=== PATIENT | male | born 1975 | race Caucasian/White ===

== ENCOUNTER → 2017-12-09 | Outpatient (CLI) | payer OTHER | END | disposition home or self-care (01) | LOC: Rad HDHVI 14:11 | PROVIDERS: ATTEND Internal Medicine Cardiovascular Disease | DX: I73.9 Peripheral vascular disease, unspecified (principal); G47.30 Sleep apnea, unspecified | CPT/HCPCS: 93306; 93970 ==

== ENCOUNTER 2022-03-04 09:10 | Inpatient (IN) | payer OTHER ==
[~2022-03-04] VITALS: Ht 175.3 cm; Wt 176.0 kg
[2022-03-04 10:19] LABS: Eosinophils # (auto) 0 10 ^3/uL (0-0.8); Hemoglobin 15.7 g/dL (13.5-17.5); Lymphocytes # (auto) 0.8 10 ^3/uL (0.4-5.4); Monocytes # (auto) 0.9 10 ^3/uL (0-1.3)
[2022-03-04 10:21] LABS: Basophils # (auto) 0 10 ^3/uL (0-0.2); Basophils % (auto) 0.3 % (0.0-2.0); Eosinophils % (auto) 0.1 % (0.0-7.0); Lymphocytes % (auto) 5.1 % (10.0-50.0); Mean Corpuscular Hemoglobin 31.2 pg (28.0-32.0); Mean Corpuscular Hgb Conc. 34.1 g/dL (32.0-36.0); Mean Corpuscular Volume 91.4 fL (80.0-100.0); Monocytes % (auto) 5.8 % (0.0-12.0); Neutrophils # (auto) 13.3 10 ^3/uL (1.6-8.6); Neutrophils % (auto) 88.7 % (37.0-80.0); Nucleated Red Blood Cells % 0.3 %; Red Blood Cells 5.03 10^6/uL (4.5-5.90); Red Cell Distribution Width 16.2 % (11.8-14.3); White Blood Cell 14.9 10^3/uL (4.4-10.8)
[2022-03-04 10:51] LABS: Albumin 3.4 g/dL (3.4-5.0); BUN/Creatinine Ratio 16.9; Calcium 8.9 mg/dL (8.5-10.1); Potassium 4.4 mmol/L (3.5-5.1); Total Protein 7.1 g/dL (6.4-8.2)
[2022-03-04] MEDS ORDERED: ONDANSETRON HCL 4 MG/2 ML VIAL IV ONE (11:45)
[2022-03-04] MEDS ORDERED: METOCLOPRAMIDE HCL 5MG/ml INJ 2ml VIAL IV ONE (11:45)
[2022-03-04] MEDS ORDERED: FAMOTIDINE (10MG/ML) 2ML VL IV ONE (11:45)
[2022-03-04] MEDS ORDERED: LACTATED RINGER'S 1,000 ML IV ONE ×2 (11:45→14:00)
[2022-03-04] MEDS ORDERED: LIDOCAINE VISCOUS 2% 15ML UD PO ONE (11:45)
[2022-03-04] MEDS ORDERED: ALUM & MAG HYDROX-SIMETH LIQ(MAALOX) 30 ML PO ONE (11:45)
[2022-03-04] MEDS ORDERED: MORPHINE SULFATE 4 MG/ML SYR/VIAL IV ONE (15:45)
[2022-03-04] MEDS ORDERED: PANTOPRAZOLE 40 MG/10 ML VIAL INJ IV ONE ×2 (17:45→18:30)
[2022-03-04] MEDS ORDERED: NITROGLYCERIN 0.4 MG SL TAB SL PRN (17:45)
[2022-03-04] MEDS ORDERED: ACETAMINOPHEN 325 MG TAB PO PRN (17:45)
[2022-03-04] MEDS ORDERED: THIAMINE 100mg/ml INJ (200mg/2ml VIAL) IV ONE (17:45)
[2022-03-04] MEDS ORDERED: MORPHINE SULFATE INJ 2 MG/ml SYRG IV PRN (17:45)
[2022-03-04] MEDS ORDERED: cefTRIAXone 1GM/50ML D5W 50 ML IV ONE (17:45)
[2022-03-04] MEDS ORDERED: SODIUM CHLORIDE 0.9% 1,000 ML IV ONE (17:45)
[2022-03-04] MEDS ORDERED: NIFE-3 PO (18:22)
[2022-03-04] MEDS ORDERED: METO-289 PO (18:22)
[2022-03-04] MEDS ORDERED: ENOXAPARIN SOD 40 MG/0.4 ML SYRINGE SC ONE (18:30)
[2022-03-04 18:47] LABS: INR 1.05 (0.9-1.15)
[2022-03-04 19:21] LABS: Blood Alcohol < 3.0 mg/dL (0-5); Cholesterol 85 mg/dL (< 200); HDL Cholesterol 56 mg/dL (40-59); LDL Cholesterol 16 mg/dL (< 100); Triglycerides 263 mg/dL (< 150)
[2022-03-04] MEDS ORDERED: metroNIDAZOLE 500MG/100ML 100 ML IV SCH (22:00)
[2022-03-04] MEDS: MORPHINE SULFATE INJ 2 MG/ml SYRG IV PRN (23:43)
[2022-03-05] MEDS: ONDANSETRON HCL 4 MG/2 ML VIAL IV PRN ×3 (03:20→22:26)
[2022-03-05] MEDS: MORPHINE SULFATE INJ 2 MG/ml SYRG IV PRN ×5 (03:21→22:25)
[2022-03-05 04:29] VITALS: BP 114/67
[2022-03-05] MEDS ORDERED: CLIN150C PO (05:49)
[2022-03-05] MEDS ORDERED: ESOM20CA PO (05:49)
[2022-03-05] MEDS ORDERED: BUSP10TA90 PO (05:49)
[2022-03-05] MEDS ORDERED: LOSA-39 PO (05:49)
[2022-03-05] MEDS ORDERED: AMLO-489 PO (05:49)
[2022-03-05] MEDS ORDERED: RIVA20TA PO (05:49)
[2022-03-05] MEDS ORDERED: LURA40TA PO (05:49)
[2022-03-05 07:42] LABS: Hemoglobin 14.6 g/dL (13.5-17.5); Mean Corpuscular Hemoglobin 31.2 pg (28.0-32.0); Mean Corpuscular Hgb Conc. 33.3 g/dL (32.0-36.0); Mean Corpuscular Volume 93.7 fL (80.0-100.0); Red Blood Cells 4.69 10^6/uL (4.5-5.90); Red Cell Distribution Width 16.5 % (11.8-14.3); White Blood Cell 25.9 10^3/uL (4.4-10.8)
[2022-03-05 07:53] LABS: Basophils % (manual) 0 (0.0-2.0); Blast Cells 0; Eosinophils % (manual) 0 (0-7); Myelocytes % 0; Promyelocytes % 0; Reactive Lymphocytes 0
[2022-03-05] MEDS: THIAMINE 100mg/ml INJ (200mg/2ml VIAL) IV SCH (08:29)
[2022-03-05] MEDS: metroNIDAZOLE 500MG/100ML 100 ML IV SCH ×2 (08:29→17:55)
[2022-03-05] MEDS: PANTOPRAZOLE 40 MG/10 ML VIAL INJ IV SCH (08:29)
[2022-03-05] MEDS: cefTRIAXone 1GM/50ML D5W 50 ML IV SCH (08:29)
[2022-03-05 09:00] VITALS: BP 126/63
[2022-03-05 09:33] LABS: Potassium 5.4 mmol/L (3.5-5.1)
[2022-03-05 09:34] LABS: Albumin 2.2 g/dL (3.4-5.0); BUN/Creatinine Ratio 10.6; Bilirubin, Total 0.8 mg/dL (0.2-1.0); Calcium 7.3 mg/dL (8.5-10.1); Total Protein 5.6 g/dL (6.4-8.2)
[2022-03-05] MEDS ORDERED: ENOXAPARIN SOD 40 MG/0.4 ML SYRINGE SC SCH (10:00)
[2022-03-05] MEDS ORDERED: PANTOPRAZOLE 40 MG/10 ML VIAL INJ IV SCH (10:00)
[2022-03-05] MEDS: SODIUM CHLORIDE 0.9% 1,000 ML IV SCH (10:35)
[2022-03-05] MEDS: HYDROcodone-ACET 5/325MG TAB PO PRN ×2 (10:35→14:24)
[2022-03-05 13:00] VITALS: BP 97/43
[2022-03-05 13:42] LABS: Band Neutrophils % (manual) 11; Lymphocytes % (manual) 13 (10.0-50.0); Metamyelocytes % 3; Monocytes % (manual) 3 (0-12)
[2022-03-05 16:34] VITALS: BP 97/43
[2022-03-05 16:50] VITALS: BP 112/48
[2022-03-05] MEDS: IPRATROPIUM BROM 0.5 MG/2.5ML INH SOL NEB PRN (19:30)
[2022-03-05] MEDS: ALBUTEROL SULF 2.5 MG/0.5ML(0.5%) NEB SOLN NEB PRN (19:30)
[2022-03-05 22:00] VITALS: BP 88/47
[2022-03-05] MEDS: HEPARIN SODIUM (PORCINE) 5000 UNITS/ML 1ML VIAL SC SCH (22:32)
[2022-03-06] MEDS: IPRATROPIUM BROM 0.5 MG/2.5ML INH SOL NEB PRN (00:30)
[2022-03-06] MEDS: ALBUTEROL SULF 2.5 MG/0.5ML(0.5%) NEB SOLN NEB PRN ×2 (00:30→05:52)
[2022-03-06] MEDS: SODIUM CHLORIDE 0.9% 1,000 ML IV SCH ×4 (00:53→18:15)
[2022-03-06] MEDS ORDERED: SODIUM CHLORIDE 0.9% 500 ML IV ONE (02:30)
[2022-03-06] MEDS: metroNIDAZOLE 500MG/100ML 100 ML IV SCH ×3 (03:25→18:30)
[2022-03-06 05:00] VITALS: BP_SYST 168; BP_SYST 85; BP_DIAS 51; BP_DIAS 82
[2022-03-06 07:19] LABS: Calcium 6.7 mg/dL (8.5-10.1); Potassium 5.3 mmol/L (3.5-5.1)
[2022-03-06 07:29] LABS: Basophils # (auto) 0 10 ^3/uL (0-0.2); Basophils % (auto) 0.2 % (0.0-2.0); Eosinophils # (auto) 0.1 10 ^3/uL (0-0.8); Eosinophils % (auto) 0.5 % (0.0-7.0); Hematocrit 37.4 % (41.0-53.0); Hemoglobin 12.3 g/dL (13.5-17.5); Lymphocytes # (auto) 1.4 10 ^3/uL (0.4-5.4); Lymphocytes % (auto) 8.4 % (10.0-50.0); Mean Corpuscular Hemoglobin 31.3 pg (28.0-32.0); Mean Corpuscular Hgb Conc. 32.9 g/dL (32.0-36.0); Mean Corpuscular Volume 95.3 fL (80.0-100.0); Monocytes # (auto) 1.4 10 ^3/uL (0-1.3); Neutrophils # (auto) 14.1 10 ^3/uL (1.6-8.6); Neutrophils % (auto) 82.9 % (37.0-80.0); Nucleated Red Blood Cells % 0.1 %; Red Blood Cells 3.93 10^6/uL (4.5-5.90); Red Cell Distribution Width 16.7 % (11.8-14.3)
[2022-03-06 07:51] LABS: BUN/Creatinine Ratio 10.4
[2022-03-06 09:00] VITALS: BP 168/140
[2022-03-06] MEDS: cefTRIAXone 1GM/50ML D5W 50 ML IV SCH (09:24)
[2022-03-06] MEDS: PANTOPRAZOLE 40 MG/10 ML VIAL INJ IV SCH (09:24)
[2022-03-06] MEDS: THIAMINE 100mg/ml INJ (200mg/2ml VIAL) IV SCH (09:25)
[2022-03-06] MEDS: HEPARIN SODIUM (PORCINE) 5000 UNITS/ML 1ML VIAL SC SCH (09:35)
[2022-03-06] MEDS ORDERED: FUROSEMIDE 100 MG/10ML VIAL IV ONE ×2 (09:45→13:00)
[2022-03-06] MEDS: HYDROcodone-ACET 5/325MG TAB PO PRN ×2 (09:51→14:10)
[2022-03-06] MEDS ORDERED: SODIUM CHLORIDE 0.9 % NEB SOLN 3ML NEB ONE (10:10)
[2022-03-06] MEDS: ALBUMIN 25% 50 ML IV SCH ×2 (11:15→16:25)
[2022-03-06 13:00] VITALS: BP 121/38
[2022-03-06] MEDS: ALBUTEROL SULF 2.5 MG/0.5ML(0.5%) NEB SOLN HHN SCH ×2 (16:08→18:22)
[2022-03-06] MEDS: IPRATROPIUM BROM 0.5 MG/2.5ML INH SOL NEB SCH ×2 (16:08→18:22)
[2022-03-06 16:49] VITALS: BP 85/49
[2022-03-06] MEDS: MIDODRINE HCL 10 MG TAB PO SCH (18:30)
[2022-03-06 23:03] VITALS: BP 109/31
[2022-03-07] MEDS: ALBUMIN 25% 50 ML IV SCH (00:09)
[2022-03-07] MEDS: HEPARIN SODIUM (PORCINE) 5000 UNITS/ML 1ML VIAL SC SCH ×3 (00:10→21:58)
[2022-03-07] MEDS: ALBUTEROL SULF 2.5 MG/0.5ML(0.5%) NEB SOLN HHN SCH ×3 (00:29→12:09)
[2022-03-07] MEDS: IPRATROPIUM BROM 0.5 MG/2.5ML INH SOL NEB SCH ×6 (00:29→22:24)
[2022-03-07] MEDS: metroNIDAZOLE 500MG/100ML 100 ML IV SCH ×3 (03:19→18:31)
[2022-03-07] MEDS: SODIUM CHLORIDE 0.9% 1,000 ML IV SCH ×3 (03:19→18:31)
[2022-03-07] MEDS: HYDROcodone-ACET 5/325MG TAB PO PRN ×3 (03:57→20:06)
[2022-03-07] MEDS: MIDODRINE HCL 10 MG TAB PO SCH ×3 (05:55→18:31)
[2022-03-07 06:20] VITALS: BP 119/48
[2022-03-07 09:00] VITALS: BP 132/50
[2022-03-07] MEDS: PANTOPRAZOLE 40 MG/10 ML VIAL INJ IV SCH (09:25)
[2022-03-07] MEDS: cefTRIAXone 1GM/50ML D5W 50 ML IV SCH (09:25)
[2022-03-07] MEDS: THIAMINE 100mg/ml INJ (200mg/2ml VIAL) IV SCH (09:25)
[2022-03-07 10:24] LABS: Hematocrit 32.2 % (41.0-53.0); Hemoglobin 10.5 g/dL (13.5-17.5); Mean Corpuscular Hemoglobin 31.5 pg (28.0-32.0); Mean Corpuscular Hgb Conc. 32.7 g/dL (32.0-36.0); Mean Corpuscular Volume 96.1 fL (80.0-100.0); Red Blood Cells 3.35 10^6/uL (4.5-5.90); Red Cell Distribution Width 17.5 % (11.8-14.3); White Blood Cell 8.8 10^3/uL (4.4-10.8)
[2022-03-07 10:43] LABS: BUN/Creatinine Ratio 9.2; Calcium 7.2 mg/dL (8.5-10.1); Potassium 5.4 mmol/L (3.5-5.1)
[2022-03-07 10:57] LABS: Basophils % (manual) 0 (0.0-2.0); Blast Cells 0; Myelocytes % 0; Promyelocytes % 0; Reactive Lymphocytes 0
[2022-03-07 13:00] VITALS: BP 107/52
[2022-03-07 14:24] LABS: Band Neutrophils % (manual) 21; Eosinophils % (manual) 1 (0-7); Lymphocytes % (manual) 11 (10.0-50.0); Metamyelocytes % 1; Monocytes % (manual) 9 (0-12)
[2022-03-07] MEDS: ALBUTEROL SULF 2.5 MG/0.5ML(0.5%) NEB SOLN NEB SCH ×3 (14:25→22:24)
[2022-03-07 17:00] VITALS: BP 105/54
[2022-03-07 22:24] VITALS: BP 108/60
[2022-03-08] VITALS (10 sets, daily range): BP systolic 120–162; BP diastolic 38–74
[2022-03-08] MEDS: metroNIDAZOLE 500MG/100ML 100 ML IV SCH ×3 (01:50→19:00)
[2022-03-08] MEDS: IPRATROPIUM BROM 0.5 MG/2.5ML INH SOL NEB SCH ×6 (02:31→21:47)
[2022-03-08] MEDS: ALBUTEROL SULF 2.5 MG/0.5ML(0.5%) NEB SOLN NEB SCH ×6 (02:31→21:47)
[2022-03-08] MEDS: SODIUM CHLORIDE 0.9% 1,000 ML IV SCH ×2 (03:15→10:15)
[2022-03-08] MEDS: MIDODRINE HCL 10 MG TAB PO SCH ×3 (06:00→18:00)
[2022-03-08 06:22] LABS: Hematocrit 31.1 % (41.0-53.0); Hemoglobin 10.2 g/dL (13.5-17.5); Mean Corpuscular Hemoglobin 32.2 pg (28.0-32.0); Mean Corpuscular Hgb Conc. 32.9 g/dL (32.0-36.0); Mean Corpuscular Volume 97.7 fL (80.0-100.0); Red Blood Cells 3.18 10^6/uL (4.5-5.90); Red Cell Distribution Width 17.7 % (11.8-14.3); White Blood Cell 7.8 10^3/uL (4.4-10.8)
[2022-03-08 06:40] LABS: Basophils % (manual) 0 (0.0-2.0); Blast Cells 0; Metamyelocytes % 0; Myelocytes % 0; Promyelocytes % 0; Reactive Lymphocytes 0
[2022-03-08 06:45] LABS: BUN/Creatinine Ratio 9.1; Calcium 6.7 mg/dL (8.5-10.1); Potassium 5.5 mmol/L (3.5-5.1)
[2022-03-08 08:41] LABS: Band Neutrophils % (manual) 10; Eosinophils % (manual) 5 (0-7); Lymphocytes % (manual) 12 (10.0-50.0); Monocytes % (manual) 5 (0-12)
[2022-03-08] MEDS: cefTRIAXone 1GM/50ML D5W 50 ML IV SCH (08:52)
[2022-03-08] MEDS: MORPHINE SULFATE INJ 2 MG/ml SYRG IV PRN ×3 (08:53→21:00)
[2022-03-08] MEDS: PANTOPRAZOLE 40 MG/10 ML VIAL INJ IV SCH (09:46)
[2022-03-08] MEDS: THIAMINE 100mg/ml INJ (200mg/2ml VIAL) IV SCH (09:46)
[2022-03-08] MEDS: HEPARIN SODIUM (PORCINE) 5000 UNITS/ML 1ML VIAL SC SCH ×2 (13:11→22:24)
[2022-03-08] MEDS ORDERED: SODIUM CHL 0.9% 1000 ML BAG XX ONE (16:30)
[2022-03-08] MEDS: LORazepam 2MG/ML-1ML VIAL IV PRN (18:53)
[2022-03-08] MEDS: ACETAMINOPHEN 325 MG TAB PO PRN (20:34)
[2022-03-09] VITALS (26 sets, daily range): BP systolic 98–160; BP diastolic 41–111
[2022-03-09] MEDS ORDERED: SODIUM BICARBONATE 8.4% INJ 50ML SYRINGE ONE (01:11)
[2022-03-09] MEDS ORDERED: SODIUM BICARBONATE 8.4 % INJ 50ML VIAL IV ONE (01:15)
[2022-03-09] MEDS: MORPHINE SULFATE INJ 2 MG/ml SYRG IV PRN ×4 (01:16→22:57)
[2022-03-09] MEDS: LORazepam 2MG/ML-1ML VIAL IV PRN ×8 (02:28→23:56)
[2022-03-09] MEDS: metroNIDAZOLE 500MG/100ML 100 ML IV SCH ×3 (02:40→18:00)
[2022-03-09] MEDS: MIDODRINE HCL 10 MG TAB PO SCH ×3 (05:21→18:00)
[2022-03-09] MEDS: ALBUTEROL SULF 2.5 MG/0.5ML(0.5%) NEB SOLN NEB SCH ×5 (06:29→21:33)
[2022-03-09] MEDS: IPRATROPIUM BROM 0.5 MG/2.5ML INH SOL NEB SCH ×5 (06:29→21:33)
[2022-03-09 07:07] LABS: Hematocrit 35.7 % (41.0-53.0); Hemoglobin 11.2 g/dL (13.5-17.5); Mean Corpuscular Hemoglobin 31.8 pg (28.0-32.0); Mean Corpuscular Hgb Conc. 31.4 g/dL (32.0-36.0); Mean Corpuscular Volume 101.3 fL (80.0-100.0); Red Blood Cells 3.53 10^6/uL (4.5-5.90); Red Cell Distribution Width 18.3 % (11.8-14.3); White Blood Cell 9.7 10^3/uL (4.4-10.8)
[2022-03-09 07:09] LABS: Basophils % (manual) 0 (0.0-2.0); Blast Cells 0; Eosinophils % (manual) 0 (0-7); Promyelocytes % 0; Reactive Lymphocytes 0
[2022-03-09 07:23] LABS: BUN/Creatinine Ratio 8.1; Calcium 7.2 mg/dL (8.5-10.1)
[2022-03-09 07:35] LABS: Potassium 5.7 mmol/L (3.5-5.1)
[2022-03-09 08:18] LABS: Band Neutrophils % (manual) 30; Lymphocytes % (manual) 21 (10.0-50.0); Metamyelocytes % 3; Monocytes % (manual) 4 (0-12); Myelocytes % 1
[2022-03-09] MEDS: cefTRIAXone 1GM/50ML D5W 50 ML IV SCH (08:23)
[2022-03-09] MEDS ORDERED: SODIUM CHL 0.9% 1000 ML BAG XX ONE (09:45)
[2022-03-09] MEDS: PANTOPRAZOLE 40 MG/10 ML VIAL INJ IV SCH (13:44)
[2022-03-09] MEDS: THIAMINE 100mg/ml INJ (200mg/2ml VIAL) IV SCH (13:45)
[2022-03-09] MEDS: HEPARIN SODIUM (PORCINE) 5000 UNITS/ML 1ML VIAL SC SCH ×2 (13:58→22:00)
[2022-03-09] MEDS ORDERED: MELATONIN 5 MG TAB ONE (22:43)
[2022-03-10] VITALS (21 sets, daily range): BP systolic 104–155; BP diastolic 45–89
[2022-03-10] MEDS: metroNIDAZOLE 500MG/100ML 100 ML IV SCH ×3 (02:00→20:00)
[2022-03-10] MEDS: LORazepam 2MG/ML-1ML VIAL IV PRN ×6 (02:22→23:27)
[2022-03-10] MEDS: IPRATROPIUM BROM 0.5 MG/2.5ML INH SOL NEB SCH ×6 (05:06→22:42)
[2022-03-10] MEDS: ALBUTEROL SULF 2.5 MG/0.5ML(0.5%) NEB SOLN NEB SCH ×6 (05:06→22:42)
[2022-03-10] MEDS: MIDODRINE HCL 10 MG TAB PO SCH ×3 (06:00→18:00)
[2022-03-10 06:46] LABS: INR 1.07 (0.9-1.15)
[2022-03-10 07:02] LABS: Albumin 2.2 g/dL (3.4-5.0); Calcium 7.8 mg/dL (8.5-10.1)
[2022-03-10 07:07] LABS: BUN/Creatinine Ratio 7.4; Bilirubin, Total 0.8 mg/dL (0.2-1.0); Total Protein 5.7 g/dL (6.4-8.2)
[2022-03-10 07:11] LABS: Basophils # (auto) 0 10 ^3/uL (0-0.2); Basophils % (auto) 0.3 % (0.0-2.0); Eosinophils # (auto) 0.1 10 ^3/uL (0-0.8); Eosinophils % (auto) 0.8 % (0.0-7.0); Hematocrit 32.4 % (41.0-53.0); Hemoglobin 10.3 g/dL (13.5-17.5); Lymphocytes # (auto) 0.8 10 ^3/uL (0.4-5.4); Lymphocytes % (auto) 6.5 % (10.0-50.0); Mean Corpuscular Hemoglobin 31.2 pg (28.0-32.0); Mean Corpuscular Hgb Conc. 31.9 g/dL (32.0-36.0); Mean Corpuscular Volume 97.8 fL (80.0-100.0); Monocytes # (auto) 1.1 10 ^3/uL (0-1.3); Monocytes % (auto) 9.1 % (0.0-12.0); Neutrophils # (auto) 10.3 10 ^3/uL (1.6-8.6); Neutrophils % (auto) 83.3 % (37.0-80.0); Nucleated Red Blood Cells % 0.3 %; Red Blood Cells 3.31 10^6/uL (4.5-5.90); White Blood Cell 12.3 10^3/uL (4.4-10.8)
[2022-03-10] MEDS: THIAMINE 100mg/ml INJ (200mg/2ml VIAL) IV SCH (11:06)
[2022-03-10] MEDS: HEPARIN SODIUM (PORCINE) 5000 UNITS/ML 1ML VIAL SC SCH ×2 (11:06→22:00)
[2022-03-10] MEDS: PANTOPRAZOLE 40 MG/10 ML VIAL INJ IV SCH (11:07)
[2022-03-10] MEDS: cefTRIAXone 1GM/50ML D5W 50 ML IV SCH (11:07)
[2022-03-10 11:31] LABS: Hepatitis C Antibody Negative (Negative)
[2022-03-10 12:42] LABS: Urine Bacteria NONE SEEN /hpf (None Seen); Urine Blood 3+ /uL (Negative); Urine Budding Yeast MODERATE /hpf (None Seen); Urine Mucus FEW (None Seen); Urine Specific Gravity 1.019 (1.001-1.035); Urine WBC 14 /hpf (0 - 3)
[2022-03-10 12:52] LABS: Sodium Urine 27 mmol/L (40-220)
[2022-03-10 12:54] LABS: Creatinine, Urine 177 mg/dL (30.0-125.0)
[2022-03-10 12:57] LABS: Protein, Urine 534.9 mg/dL (0.0-11.9)
[2022-03-10] MEDS: MORPHINE SULFATE INJ 2 MG/ml SYRG IV PRN (22:59)
[2022-03-10] MEDS: ACETAMINOPHEN 325 MG TAB PO PRN (23:07)
[2022-03-11] VITALS (30 sets, daily range): BP systolic 14–135; BP diastolic 36–84
[2022-03-11] MEDS: ONDANSETRON HCL 4 MG/2 ML VIAL IV PRN ×2 (00:23→11:36)
[2022-03-11] MEDS: metroNIDAZOLE 500MG/100ML 100 ML IV SCH ×2 (02:00→13:54)
[2022-03-11 04:25] LABS: Basophils # (auto) 0.1 10 ^3/uL (0-0.2); Basophils % (auto) 0.5 % (0.0-2.0); Eosinophils # (auto) 0.2 10 ^3/uL (0-0.8); Eosinophils % (auto) 1.1 % (0.0-7.0); Hematocrit 29.8 % (41.0-53.0); Hemoglobin 9.8 g/dL (13.5-17.5); Lymphocytes # (auto) 0.7 10 ^3/uL (0.4-5.4); Lymphocytes % (auto) 3.7 % (10.0-50.0); Mean Corpuscular Hemoglobin 31.6 pg (28.0-32.0); Mean Corpuscular Hgb Conc. 32.9 g/dL (32.0-36.0); Mean Corpuscular Volume 95.9 fL (80.0-100.0); Monocytes # (auto) 0.9 10 ^3/uL (0-1.3); Monocytes % (auto) 4.8 % (0.0-12.0); Neutrophils # (auto) 17.1 10 ^3/uL (1.6-8.6); Neutrophils % (auto) 89.9 % (37.0-80.0); Nucleated Red Blood Cells % 0.1 %; Red Cell Distribution Width 17.9 % (11.8-14.3)
[2022-03-11] MEDS: MIDODRINE HCL 10 MG TAB PO SCH ×3 (06:00→18:00)
[2022-03-11] MEDS: ALBUTEROL SULF 2.5 MG/0.5ML(0.5%) NEB SOLN NEB SCH ×5 (06:12→22:13)
[2022-03-11] MEDS: IPRATROPIUM BROM 0.5 MG/2.5ML INH SOL NEB SCH ×5 (06:12→22:13)
[2022-03-11] MEDS ORDERED: SODIUM CHL 0.9% 1000 ML BAG XX ONE (07:00)
[2022-03-11 08:34] LABS: BUN/Creatinine Ratio 7.9; Calcium 7.3 mg/dL (8.5-10.1); Potassium 5.3 mmol/L (3.5-5.1)
[2022-03-11] MEDS ORDERED: methylPREDNISolone SOD SUCC 40 MG/ML VL IV ONE (09:45)
[2022-03-11] MEDS: THIAMINE 100mg/ml INJ (200mg/2ml VIAL) IV SCH (10:00)
[2022-03-11] MEDS: HEPARIN SODIUM (PORCINE) 5000 UNITS/ML 1ML VIAL SC SCH ×2 (10:00→23:30)
[2022-03-11] MEDS: PANTOPRAZOLE 40 MG/10 ML VIAL INJ IV SCH (10:00)
[2022-03-11] MEDS: NOREPINEPHRINE 8 MG/250ML KIT 250 ML IV SCH (10:15)
[2022-03-11] MEDS: ALBUMIN 25% 100 ML IV PRN ×2 (10:50→12:14)
[2022-03-11] MEDS: cefTRIAXone 1GM/50ML D5W 50 ML IV SCH (13:54)
[2022-03-11] MEDS: MORPHINE SULFATE INJ 2 MG/ml SYRG IV PRN (14:05)
[2022-03-11] MEDS ORDERED: ETOMIDATE (2MG/ML) 20ML VIAL IV ONE (15:00)
[2022-03-11] MEDS: MIDAZOLAM DRIP 50 mg/50mL 50 ML IV SCH (15:00)
[2022-03-11] MEDS ORDERED: ROCURONIUM 10MG/ML 10ML VIAL IV ONE (15:00)
[2022-03-11] MEDS: fentaNYL Drip 2500mCg/250mlNS 250 ML IV SCH (15:00)
[2022-03-11] MEDS ORDERED: MIDAZOLAM DRIP 50 mg/50mL 50 ML IV ONE (15:10)
[2022-03-11] MEDS ORDERED: fentaNYL Drip 2500mCg/250mlNS 250 ML IV ONE (15:10)
[2022-03-11] MEDS: PROPOFOL 100 ML IV SCH (18:07)
[2022-03-11] MEDS ORDERED: EPOETIN ALFA-EPBX 10,000 UNIT/1ML VIAL SC ONE (21:00)
[2022-03-11] MEDS: LACTULOSE 20Gm/30ML SOLN PO SCH (22:00)
[2022-03-11] MEDS: methylPREDNISolone SOD SUCC 40 MG/ML VL IV SCH (23:30)
[2022-03-12] VITALS (77 sets, daily range): BP systolic 83–117; BP diastolic 36–80
[2022-03-12] MEDS: metroNIDAZOLE 500MG/100ML 100 ML IV SCH ×3 (02:00→18:03)
[2022-03-12 04:02] LABS: Hematocrit 29.3 % (41.0-53.0); Hemoglobin 9.3 g/dL (13.5-17.5); Mean Corpuscular Hemoglobin 30.8 pg (28.0-32.0); Mean Corpuscular Hgb Conc. 31.6 g/dL (32.0-36.0); Mean Corpuscular Volume 97.3 fL (80.0-100.0); Red Blood Cells 3.01 10^6/uL (4.5-5.90); White Blood Cell 27.1 10^3/uL (4.4-10.8)
[2022-03-12 04:22] LABS: Calcium 7.4 mg/dL (8.5-10.1)
[2022-03-12 04:26] LABS: BUN/Creatinine Ratio 7.5
[2022-03-12 04:29] LABS: Basophils % (manual) 0 (0.0-2.0); Blast Cells 0; Eosinophils % (manual) 0 (0-7); Metamyelocytes % 0; Myelocytes % 0; Promyelocytes % 0; Reactive Lymphocytes 0
[2022-03-12 05:07] LABS: Potassium 6.1 mmol/L (3.5-5.1)
[2022-03-12] MEDS: MIDODRINE HCL 10 MG TAB PO SCH ×3 (05:36→18:00)
[2022-03-12] MEDS: IPRATROPIUM BROM 0.5 MG/2.5ML INH SOL NEB SCH ×5 (06:41→22:11)
[2022-03-12] MEDS: ALBUTEROL SULF 2.5 MG/0.5ML(0.5%) NEB SOLN NEB SCH ×5 (06:41→22:11)
[2022-03-12] MEDS ORDERED: SODIUM CHL 0.9% 1000 ML BAG XX ONE (07:00)
[2022-03-12 07:04] LABS: Band Neutrophils % (manual) 27; Lymphocytes % (manual) 1 (10.0-50.0); Monocytes % (manual) 1 (0-12)
[2022-03-12] MEDS: PROPOFOL 100 ML IV SCH ×3 (08:26→20:39)
[2022-03-12] MEDS: MIDAZOLAM DRIP 50 mg/50mL 50 ML IV SCH ×3 (08:26→20:40)
[2022-03-12] MEDS: fentaNYL Drip 2500mCg/250mlNS 250 ML IV SCH ×2 (08:27→20:41)
[2022-03-12] MEDS: methylPREDNISolone SOD SUCC 40 MG/ML VL IV SCH ×2 (09:33→21:49)
[2022-03-12] MEDS: PANTOPRAZOLE 40 MG/10 ML VIAL INJ IV SCH (09:33)
[2022-03-12] MEDS: cefTRIAXone 1GM/50ML D5W 50 ML IV SCH (09:33)
[2022-03-12] MEDS: THIAMINE 100mg/ml INJ (200mg/2ml VIAL) IV SCH (09:33)
[2022-03-12] MEDS: LACTULOSE 20Gm/30ML SOLN PO SCH (09:34)
[2022-03-12] MEDS: HEPARIN SODIUM (PORCINE) 5000 UNITS/ML 1ML VIAL SC SCH ×2 (09:48→21:48)
[2022-03-12] MEDS: NOREPINEPHRINE 8 MG/250ML KIT 250 ML IV SCH ×2 (10:15→17:59)
[2022-03-12] MEDS ORDERED: EPOETIN ALFA-EPBX 10,000 UNIT/1ML VIAL SC ONE (21:00)
[2022-03-13] VITALS (98 sets, daily range): BP systolic 77–139; BP diastolic 26–78
[2022-03-13] MEDS: MIDAZOLAM DRIP 50 mg/50mL 50 ML IV SCH ×3 (00:01→21:07)
[2022-03-13] MEDS: metroNIDAZOLE 500MG/100ML 100 ML IV SCH ×2 (02:01→10:42)
[2022-03-13 04:22] LABS: Hemoglobin 8.4 g/dL (13.5-17.5); White Blood Cell 18.7 10^3/uL (4.4-10.8)
[2022-03-13 04:25] LABS: Hematocrit 26.1 % (41.0-53.0); Mean Corpuscular Hemoglobin 31.3 pg (28.0-32.0); Mean Corpuscular Hgb Conc. 32.3 g/dL (32.0-36.0); Mean Corpuscular Volume 96.9 fL (80.0-100.0); Red Blood Cells 2.69 10^6/uL (4.5-5.90); Red Cell Distribution Width 17.7 % (11.8-14.3)
[2022-03-13 04:30] LABS: Basophils % (manual) 0 (0.0-2.0); Blast Cells 0; Eosinophils % (manual) 0 (0-7); Lymphocytes % (manual) 0 (10.0-50.0); Metamyelocytes % 0; Myelocytes % 0; Promyelocytes % 0; Reactive Lymphocytes 0
[2022-03-13 04:32] LABS: Potassium 4.9 mmol/L (3.5-5.1)
[2022-03-13 04:37] LABS: BUN/Creatinine Ratio 8.3; Calcium 7.3 mg/dL (8.5-10.1)
[2022-03-13] MEDS: MIDODRINE HCL 10 MG TAB PO SCH ×3 (04:45→17:26)
[2022-03-13] MEDS: PROPOFOL 100 ML IV SCH ×3 (05:14→19:56)
[2022-03-13] MEDS: IPRATROPIUM BROM 0.5 MG/2.5ML INH SOL NEB SCH ×5 (06:26→22:00)
[2022-03-13] MEDS: ALBUTEROL SULF 2.5 MG/0.5ML(0.5%) NEB SOLN NEB SCH ×5 (06:26→22:00)
[2022-03-13 08:10] LABS: Band Neutrophils % (manual) 11
[2022-03-13 08:13] LABS: Monocytes % (manual) 1 (0-12)
[2022-03-13] MEDS: cefTRIAXone 1GM/50ML D5W 50 ML IV SCH (08:40)
[2022-03-13] MEDS: fentaNYL Drip 2500mCg/250mlNS 250 ML IV SCH ×2 (08:41→21:10)
[2022-03-13] MEDS: HEPARIN SODIUM (PORCINE) 5000 UNITS/ML 1ML VIAL SC SCH ×2 (10:00→21:10)
[2022-03-13] MEDS: LACTULOSE 20Gm/30ML SOLN PO SCH (10:00)
[2022-03-13] MEDS: THIAMINE 100mg/ml INJ (200mg/2ml VIAL) IV SCH (10:41)
[2022-03-13] MEDS: methylPREDNISolone SOD SUCC 40 MG/ML VL IV SCH ×2 (10:42→21:07)
[2022-03-13] MEDS: PANTOPRAZOLE 40 MG/10 ML VIAL INJ IV SCH (10:42)
[2022-03-13] MEDS ORDERED: MEROPENEM 1GM IVPB 100 ML IV SCH (14:00)
[2022-03-13] MEDS: MEROPENEM 500MG IVPB 50 ML IV SCH ×2 (15:00→23:58)
[2022-03-14] VITALS (104 sets, daily range): BP systolic 93–126; BP diastolic 42–68
[2022-03-14] MEDS: PROPOFOL 100 ML IV SCH ×4 (00:39→21:11)
[2022-03-14] MEDS: MIDAZOLAM DRIP 50 mg/50mL 50 ML IV SCH ×2 (02:51→21:10)
[2022-03-14 04:00] LABS: Basophils # (auto) 0 10 ^3/uL (0-0.2); Eosinophils # (auto) 0 10 ^3/uL (0-0.8); Hemoglobin 8.8 g/dL (13.5-17.5); Lymphocytes # (auto) 0.3 10 ^3/uL (0.4-5.4); Lymphocytes % (auto) 1.8 % (10.0-50.0); Mean Corpuscular Hemoglobin 31.2 pg (28.0-32.0); Mean Corpuscular Hgb Conc. 31.6 g/dL (32.0-36.0); Mean Corpuscular Volume 98.5 fL (80.0-100.0); Monocytes # (auto) 0.6 10 ^3/uL (0-1.3); Monocytes % (auto) 3.7 % (0.0-12.0); Neutrophils # (auto) 15.8 10 ^3/uL (1.6-8.6); Neutrophils % (auto) 94.5 % (37.0-80.0); Nucleated Red Blood Cells % 0.1 %; Red Blood Cells 2.84 10^6/uL (4.5-5.90); Red Cell Distribution Width 18.3 % (11.8-14.3); White Blood Cell 16.8 10^3/uL (4.4-10.8)
[2022-03-14 04:20] LABS: BUN/Creatinine Ratio 9.7; Calcium 7.2 mg/dL (8.5-10.1); Potassium 5.1 mmol/L (3.5-5.1)
[2022-03-14] MEDS: MIDODRINE HCL 10 MG TAB PO SCH ×4 (05:30→17:36)
[2022-03-14] MEDS: IPRATROPIUM BROM 0.5 MG/2.5ML INH SOL NEB SCH ×5 (06:00→22:15)
[2022-03-14] MEDS: ALBUTEROL SULF 2.5 MG/0.5ML(0.5%) NEB SOLN NEB SCH ×5 (06:00→22:15)
[2022-03-14] MEDS: HEPARIN SODIUM (PORCINE) 5000 UNITS/ML 1ML VIAL SC SCH ×2 (10:12→21:15)
[2022-03-14] MEDS: methylPREDNISolone SOD SUCC 40 MG/ML VL IV SCH ×2 (10:13→21:14)
[2022-03-14] MEDS: NOREPINEPHRINE 8 MG/250ML KIT 250 ML IV SCH (10:15)
[2022-03-14] MEDS: fentaNYL Drip 2500mCg/250mlNS 250 ML IV SCH ×2 (10:16→21:13)
[2022-03-14] MEDS: THIAMINE 100mg/ml INJ (200mg/2ml VIAL) IV SCH (10:16)
[2022-03-14] MEDS: PANTOPRAZOLE 40 MG/10 ML VIAL INJ IV SCH (10:16)
[2022-03-14] MEDS: LACTULOSE 20Gm/30ML SOLN PO SCH (10:17)
[2022-03-14] MEDS: MEROPENEM 500MG IVPB 50 ML IV SCH (12:39)
[2022-03-15] VITALS (103 sets, daily range): BP systolic 82–120; BP diastolic 32–74
[2022-03-15] MEDS: MEROPENEM 500MG IVPB 50 ML IV SCH ×2 (00:15→13:05)
[2022-03-15] MEDS: PROPOFOL 100 ML IV SCH ×4 (01:18→21:22)
[2022-03-15] MEDS: MIDAZOLAM DRIP 50 mg/50mL 50 ML IV SCH ×5 (02:47→21:23)
[2022-03-15 04:21] LABS: Hematocrit 30.8 % (41.0-53.0); Hemoglobin 9.6 g/dL (13.5-17.5); Mean Corpuscular Hemoglobin 31.4 pg (28.0-32.0); Mean Corpuscular Hgb Conc. 31.2 g/dL (32.0-36.0); Mean Corpuscular Volume 100.8 fL (80.0-100.0); Red Blood Cells 3.05 10^6/uL (4.5-5.90); Red Cell Distribution Width 17.7 % (11.8-14.3); White Blood Cell 22.4 10^3/uL (4.4-10.8)
[2022-03-15 04:32] LABS: BUN/Creatinine Ratio 11.8
[2022-03-15 04:36] LABS: Potassium 6.9 mmol/L (3.5-5.1)
[2022-03-15 04:38] LABS: Basophils % (manual) 0 (0.0-2.0); Blast Cells 0; Eosinophils % (manual) 0 (0-7); Metamyelocytes % 0; Myelocytes % 0; Promyelocytes % 0; Reactive Lymphocytes 0
[2022-03-15 05:40] LABS: Band Neutrophils % (manual) 5; Lymphocytes % (manual) 2 (10.0-50.0); Monocytes % (manual) 2 (0-12)
[2022-03-15] MEDS: MIDODRINE HCL 10 MG TAB PO SCH ×3 (06:02→18:00)
[2022-03-15] MEDS: IPRATROPIUM BROM 0.5 MG/2.5ML INH SOL NEB SCH ×5 (06:08→22:28)
[2022-03-15] MEDS: ALBUTEROL SULF 2.5 MG/0.5ML(0.5%) NEB SOLN NEB SCH ×5 (06:08→22:28)
[2022-03-15] MEDS ORDERED: CALCIUM GLUC 1,000mg/50ml-NS 50 ML IV ONE (06:30)
[2022-03-15] MEDS ORDERED: InsuLIN REG 1unit/0.01ml Soln (100units/ml) IV ONE (06:30)
[2022-03-15] MEDS ORDERED: ALBUTEROL SULF 2.5 MG/0.5ML(0.5%) NEB SOLN NEB ONE (06:30)
[2022-03-15] MEDS ORDERED: SODIUM BICARBONATE 8.4% INJ 50ML SYRINGE IV ONE (06:30)
[2022-03-15] MEDS ORDERED: DEXTROSE (50%) 50ML SYRG IV ONE (06:30)
[2022-03-15] MEDS ORDERED: ALBUTEROL SULF 2.5 MG/0.5ML(0.5%) NEB SOLN ONE (06:52)
[2022-03-15] MEDS ORDERED: SODIUM CHL 0.9% 1000 ML BAG XX ONE (07:00)
[2022-03-15] MEDS: NOREPINEPHRINE 8 MG/250ML KIT 250 ML IV SCH (07:11)
[2022-03-15] MEDS: fentaNYL Drip 2500mCg/250mlNS 250 ML IV SCH ×2 (09:52→21:26)
[2022-03-15] MEDS: ALBUMIN 25% 100 ML IV PRN ×2 (10:14→10:42)
[2022-03-15] MEDS: LACTULOSE 20Gm/30ML SOLN PO SCH (13:02)
[2022-03-15] MEDS: THIAMINE 100mg/ml INJ (200mg/2ml VIAL) IV SCH (13:03)
[2022-03-15] MEDS: PANTOPRAZOLE 40 MG/10 ML VIAL INJ IV SCH (13:03)
[2022-03-15] MEDS: HEPARIN SODIUM (PORCINE) 5000 UNITS/ML 1ML VIAL SC SCH ×2 (13:04→22:28)
[2022-03-15] MEDS: methylPREDNISolone SOD SUCC 40 MG/ML VL IV SCH ×2 (13:08→22:28)
[2022-03-15 18:55] LABS: INR 0.99 (0.9-1.15); Partial Thromboplastin Time 23.7 sec (24.6-33.4)
[2022-03-15] MEDS ORDERED: EPOETIN ALFA-EPBX 10,000 UNIT/1ML VIAL SC ONE (21:00)
[2022-03-16] VITALS (103 sets, daily range): BP systolic 96–126; BP diastolic 44–67
[2022-03-16] MEDS: PROPOFOL 100 ML IV SCH ×5 (01:48→23:30)
[2022-03-16] MEDS: NOREPINEPHRINE 8 MG/250ML KIT 250 ML IV SCH (01:48)
[2022-03-16] MEDS: MIDAZOLAM DRIP 50 mg/50mL 50 ML IV SCH ×5 (03:00→23:29)
[2022-03-16 04:38] LABS: Hemoglobin 8.6 g/dL (13.5-17.5); Mean Corpuscular Volume 99.4 fL (80.0-100.0)
[2022-03-16 04:40] LABS: Hematocrit 27.7 % (41.0-53.0); Mean Corpuscular Hemoglobin 30.7 pg (28.0-32.0); Mean Corpuscular Hgb Conc. 30.9 g/dL (32.0-36.0); Red Blood Cells 2.79 10^6/uL (4.5-5.90); Red Cell Distribution Width 17.2 % (11.8-14.3); White Blood Cell 22.3 10^3/uL (4.4-10.8)
[2022-03-16 04:51] LABS: Band Neutrophils % (manual) 0; Basophils % (manual) 0 (0.0-2.0); Blast Cells 0; Eosinophils % (manual) 0 (0-7); Promyelocytes % 0; Reactive Lymphocytes 0
[2022-03-16 05:07] LABS: Lymphocytes % (manual) 3 (10.0-50.0); Metamyelocytes % 1; Monocytes % (manual) 4 (0-12); Myelocytes % 1
[2022-03-16 05:37] LABS: Anion Gap 19 (5-15); BUN/Creatinine Ratio 12.4; Calcium 6.4 mg/dL (8.5-10.1); Carbon Dioxide 20 mmol/L (21-32); Chloride 98 mmol/L (98-107); GFR African American 10 mL/min; GFR Non-African American 9 mL/min; Glucose 191 mg/dL (74-106); Sodium 137 mmol/L (136-145)
[2022-03-16 05:43] LABS: Blood Urea Nitrogen 90 mg/dL (7-18); Potassium 6.3 mmol/L (3.5-5.1)
[2022-03-16] MEDS: ALBUTEROL SULF 2.5 MG/0.5ML(0.5%) NEB SOLN NEB SCH ×5 (06:15→23:13)
[2022-03-16] MEDS: IPRATROPIUM BROM 0.5 MG/2.5ML INH SOL NEB SCH ×5 (06:15→23:14)
[2022-03-16] MEDS: MIDODRINE HCL 10 MG TAB PO SCH ×3 (07:27→17:31)
[2022-03-16] MEDS ORDERED: CALCIUM GLUC 1,000mg/50ml-NS 50 ML IV ONE (08:45)
[2022-03-16] MEDS ORDERED: InsuLIN REG 1unit/0.01ml Soln (100units/ml) IV ONE (08:45)
[2022-03-16] MEDS ORDERED: SODIUM BICARBONATE 8.4 % INJ 50ML VIAL IV ONE (08:45)
[2022-03-16] MEDS ORDERED: DEXTROSE (50%) 50ML SYRG IV ONE (08:45)
[2022-03-16] MEDS: fentaNYL Drip 2500mCg/250mlNS 250 ML IV SCH ×2 (09:11→21:53)
[2022-03-16] MEDS: BUMETANIDE INJECTION 25 MG in GIVE UN-DILUTED 0 ML IV SCH (09:41)
[2022-03-16] MEDS: methylPREDNISolone SOD SUCC 40 MG/ML VL IV SCH ×2 (10:22→22:02)
[2022-03-16] MEDS: PANTOPRAZOLE 40 MG/10 ML VIAL INJ IV SCH (10:22)
[2022-03-16] MEDS: THIAMINE 100mg/ml INJ (200mg/2ml VIAL) IV SCH (10:23)
[2022-03-16] MEDS: SODIUM ZIRCONIUM CYCL 10 GM PAK GT SCH ×3 (10:23→22:01)
[2022-03-16] MEDS: MEROPENEM 1GM IVPB 100 ML IV SCH (10:23)
[2022-03-16] MEDS: LACTULOSE 20Gm/30ML SOLN PO SCH (10:23)
[2022-03-16] MEDS: HEPARIN SODIUM (PORCINE) 5000 UNITS/ML 1ML VIAL SC SCH ×2 (10:24→22:04)
[2022-03-17] VITALS (97 sets, daily range): BP systolic 101–133; BP diastolic 48–70
[2022-03-17] MEDS: PROPOFOL 100 ML IV SCH ×4 (02:21→23:55)
[2022-03-17] MEDS: NOREPINEPHRINE 8 MG/250ML KIT 250 ML IV SCH (02:22)
[2022-03-17 04:21] LABS: Mean Corpuscular Hgb Conc. 31.3 g/dL (32.0-36.0)
[2022-03-17 04:23] LABS: Hematocrit 27.9 % (41.0-53.0); Hemoglobin 8.7 g/dL (13.5-17.5); Mean Corpuscular Hemoglobin 30.6 pg (28.0-32.0); Mean Corpuscular Volume 97.9 fL (80.0-100.0); Red Blood Cells 2.85 10^6/uL (4.5-5.90); Red Cell Distribution Width 16.8 % (11.8-14.3); White Blood Cell 19.6 10^3/uL (4.4-10.8)
[2022-03-17 04:43] LABS: BUN/Creatinine Ratio 15.3; Calcium 6.1 mg/dL (8.5-10.1)
[2022-03-17 05:01] LABS: Basophils % (manual) 0 (0.0-2.0); Blast Cells 0; Eosinophils % (manual) 0 (0-7); Promyelocytes % 0; Reactive Lymphocytes 0
[2022-03-17 05:08] LABS: Potassium 7.2 mmol/L (3.5-5.1)
[2022-03-17] MEDS: MIDAZOLAM DRIP 50 mg/50mL 50 ML IV SCH ×3 (06:06→23:55)
[2022-03-17] MEDS: ALBUTEROL SULF 2.5 MG/0.5ML(0.5%) NEB SOLN NEB SCH ×5 (06:33→21:53)
[2022-03-17] MEDS: IPRATROPIUM BROM 0.5 MG/2.5ML INH SOL NEB SCH ×5 (06:34→21:53)
[2022-03-17] MEDS ORDERED: SODIUM CHL 0.9% 1000 ML BAG XX ONE (07:00)
[2022-03-17] MEDS: MIDODRINE HCL 10 MG TAB PO SCH ×3 (07:01→18:04)
[2022-03-17] MEDS: SODIUM ZIRCONIUM CYCL 10 GM PAK GT SCH ×3 (07:01→21:36)
[2022-03-17 07:09] LABS: Band Neutrophils % (manual) 1; Lymphocytes % (manual) 3 (10.0-50.0); Metamyelocytes % 2; Monocytes % (manual) 3 (0-12); Myelocytes % 1
[2022-03-17] MEDS: BUMETANIDE INJECTION 25 MG in GIVE UN-DILUTED 0 ML IV SCH (07:25)
[2022-03-17] MEDS ORDERED: SODIUM BICARBONATE 8.4% INJ 50ML SYRINGE IV ONE (07:45)
[2022-03-17] MEDS ORDERED: CALCIUM GLUC 1,000mg/50ml-NS 50 ML IV ONE (07:45)
[2022-03-17] MEDS ORDERED: DEXTROSE (50%) 50ML SYRG IV ONE (07:45)
[2022-03-17] MEDS ORDERED: InsuLIN REG 1unit/0.01ml Soln (100units/ml) IV ONE (07:45)
[2022-03-17] MEDS: PANTOPRAZOLE 40 MG/10 ML VIAL INJ IV SCH (08:43)
[2022-03-17] MEDS: THIAMINE 100mg/ml INJ (200mg/2ml VIAL) IV SCH (08:43)
[2022-03-17] MEDS: MEROPENEM 1GM IVPB 100 ML IV SCH ×2 (08:43→18:04)
[2022-03-17] MEDS: methylPREDNISolone SOD SUCC 40 MG/ML VL IV SCH ×2 (08:43→21:36)
[2022-03-17] MEDS: LACTULOSE 20Gm/30ML SOLN PO SCH (08:43)
[2022-03-17] MEDS: fentaNYL Drip 2500mCg/250mlNS 250 ML IV SCH ×2 (09:10→20:38)
[2022-03-17] MEDS: HEPARIN SODIUM (PORCINE) 5000 UNITS/ML 1ML VIAL SC SCH ×2 (10:00→21:39)
[2022-03-17] MEDS: ALBUMIN 25% 100 ML IV PRN (10:40)
[2022-03-17 17:12] LABS: BUN/Creatinine Ratio 13.7; Calcium 7.5 mg/dL (8.5-10.1)
[2022-03-17] MEDS ORDERED: EPOETIN ALFA-EPBX 10,000 UNIT/1ML VIAL SC ONE (21:00)
[2022-03-18] VITALS (98 sets, daily range): BP systolic 96–153; BP diastolic 48–75
[2022-03-18 04:04] LABS: Hematocrit 28.2 % (41.0-53.0); Hemoglobin 9.2 g/dL (13.5-17.5); Mean Corpuscular Hemoglobin 31.1 pg (28.0-32.0); Mean Corpuscular Hgb Conc. 32.7 g/dL (32.0-36.0); Mean Corpuscular Volume 95.3 fL (80.0-100.0); Red Blood Cells 2.96 10^6/uL (4.5-5.90); Red Cell Distribution Width 16.6 % (11.8-14.3); White Blood Cell 14.7 10^3/uL (4.4-10.8)
[2022-03-18] MEDS: PROPOFOL 100 ML IV SCH ×5 (04:15→23:25)
[2022-03-18] MEDS: MIDAZOLAM DRIP 50 mg/50mL 50 ML IV SCH ×3 (04:15→19:30)
[2022-03-18 04:18] LABS: BUN/Creatinine Ratio 15.7; Calcium 7.6 mg/dL (8.5-10.1); Potassium 5.4 mmol/L (3.5-5.1)
[2022-03-18 04:29] LABS: Basophils % (manual) 0 (0.0-2.0); Blast Cells 0; Eosinophils % (manual) 0 (0-7); Myelocytes % 0; Promyelocytes % 0; Reactive Lymphocytes 0
[2022-03-18] MEDS: ALBUTEROL SULF 2.5 MG/0.5ML(0.5%) NEB SOLN NEB SCH ×5 (06:10→22:00)
[2022-03-18] MEDS: IPRATROPIUM BROM 0.5 MG/2.5ML INH SOL NEB SCH ×5 (06:10→22:00)
[2022-03-18] MEDS: MIDODRINE HCL 10 MG TAB PO SCH ×3 (06:35→18:26)
[2022-03-18] MEDS: fentaNYL Drip 2500mCg/250mlNS 250 ML IV SCH (06:36)
[2022-03-18 08:38] LABS: Band Neutrophils % (manual) 13; Lymphocytes % (manual) 5 (10.0-50.0); Metamyelocytes % 1; Monocytes % (manual) 5 (0-12)
[2022-03-18] MEDS ORDERED: SODIUM CHL 0.9% 1000 ML BAG XX ONE (09:15)
[2022-03-18] MEDS: PANTOPRAZOLE 40 MG/10 ML VIAL INJ IV SCH (09:36)
[2022-03-18] MEDS: THIAMINE 100mg/ml INJ (200mg/2ml VIAL) IV SCH (09:36)
[2022-03-18] MEDS: methylPREDNISolone SOD SUCC 40 MG/ML VL IV SCH ×2 (09:36→22:00)
[2022-03-18] MEDS: ALBUMIN 25% 100 ML IV PRN ×2 (10:06→11:00)
[2022-03-18] MEDS: NOREPINEPHRINE 8 MG/250ML KIT 250 ML IV SCH (10:15)
[2022-03-18] MEDS: BUMETANIDE INJECTION 25 MG in GIVE UN-DILUTED 0 ML IV SCH (11:16)
[2022-03-18] MEDS: LACTULOSE 20Gm/30ML SOLN PO SCH (11:17)
[2022-03-18] MEDS: HEPARIN SODIUM (PORCINE) 5000 UNITS/ML 1ML VIAL SC SCH ×2 (11:17→22:12)
[2022-03-18 11:26] LABS: Alanine Aminotransferase 47 U/L (16-61); Alkaline Phosphatase 132 U/L (45-117); Aspartate Aminotransferase 52 U/L (15-37)
[2022-03-18] MEDS: MEROPENEM 1GM IVPB 100 ML IV SCH (18:30)
[2022-03-18] MEDS ORDERED: EPOETIN ALFA-EPBX 10,000 UNIT/1ML VIAL SC ONE (21:00)
[2022-03-18] MEDS: METOCLOPRAMIDE HCL 5MG/ml INJ 2ml VIAL IV SCH (22:10)
[2022-03-19] VITALS (102 sets, daily range): BP systolic 97–218; BP diastolic 45–85
[2022-03-19] MEDS: MIDAZOLAM DRIP 50 mg/50mL 50 ML IV SCH ×6 (00:57→23:37)
[2022-03-19] MEDS: PROPOFOL 100 ML IV SCH ×5 (03:51→23:36)
[2022-03-19 05:16] LABS: White Blood Cell 13.9 10^3/uL (4.4-10.8)
[2022-03-19 05:18] LABS: Hematocrit 28.6 % (41.0-53.0); Hemoglobin 9.3 g/dL (13.5-17.5); Mean Corpuscular Hemoglobin 30.8 pg (28.0-32.0); Mean Corpuscular Hgb Conc. 32.3 g/dL (32.0-36.0); Mean Corpuscular Volume 95.2 fL (80.0-100.0); Red Blood Cells 3.01 10^6/uL (4.5-5.90); Red Cell Distribution Width 16.4 % (11.8-14.3)
[2022-03-19 05:22] LABS: Potassium 4.9 mmol/L (3.5-5.1)
[2022-03-19 05:23] LABS: BUN/Creatinine Ratio 19.7
[2022-03-19 05:33] LABS: Basophils % (manual) 0 (0.0-2.0); Blast Cells 0; Eosinophils % (manual) 0 (0-7); Promyelocytes % 0; Reactive Lymphocytes 0
[2022-03-19] MEDS: MIDODRINE HCL 10 MG TAB PO SCH ×3 (06:00→17:47)
[2022-03-19] MEDS: fentaNYL Drip 2500mCg/250mlNS 250 ML IV SCH (06:00)
[2022-03-19 08:29] LABS: Band Neutrophils % (manual) 8; Lymphocytes % (manual) 9 (10.0-50.0); Metamyelocytes % 3; Monocytes % (manual) 5 (0-12); Myelocytes % 3
[2022-03-19] MEDS: BUMETANIDE INJECTION 25 MG in GIVE UN-DILUTED 0 ML IV SCH (09:15)
[2022-03-19] MEDS: methylPREDNISolone SOD SUCC 40 MG/ML VL IV SCH ×2 (09:55→21:57)
[2022-03-19] MEDS: PANTOPRAZOLE 40 MG/10 ML VIAL INJ IV SCH (09:55)
[2022-03-19] MEDS: LACTULOSE 20Gm/30ML SOLN PO SCH (09:55)
[2022-03-19] MEDS: METOCLOPRAMIDE HCL 5MG/ml INJ 2ml VIAL IV SCH ×2 (09:55→21:58)
[2022-03-19] MEDS: THIAMINE 100mg/ml INJ (200mg/2ml VIAL) IV SCH (09:56)
[2022-03-19] MEDS: HEPARIN SODIUM (PORCINE) 5000 UNITS/ML 1ML VIAL SC SCH ×2 (10:02→21:58)
[2022-03-19] MEDS: NOREPINEPHRINE 8 MG/250ML KIT 250 ML IV SCH (10:05)
[2022-03-19] MEDS: ALBUTEROL SULF 2.5 MG/0.5ML(0.5%) NEB SOLN NEB SCH ×5 (10:47→22:42)
[2022-03-19] MEDS: IPRATROPIUM BROM 0.5 MG/2.5ML INH SOL NEB SCH ×5 (10:48→22:42)
[2022-03-19] MEDS: hydrALAZINE HCL 20 MG/ML VL IV PRN ×2 (15:18→15:27)
[2022-03-19] MEDS: MEROPENEM 1GM IVPB 100 ML IV SCH (17:47)
[2022-03-20] VITALS (108 sets, daily range): BP systolic 79–129; BP diastolic 42–78
[2022-03-20] MEDS: PROPOFOL 100 ML IV SCH ×8 (01:57→22:00)
[2022-03-20] MEDS: BUMETANIDE INJECTION 25 MG in GIVE UN-DILUTED 0 ML IV SCH (03:24)
[2022-03-20] MEDS: fentaNYL Drip 2500mCg/250mlNS 250 ML IV SCH ×2 (03:25→15:34)
[2022-03-20] MEDS: MIDAZOLAM DRIP 50 mg/50mL 50 ML IV SCH ×5 (03:26→23:00)
[2022-03-20 04:22] LABS: Hemoglobin 9.8 g/dL (13.5-17.5)
[2022-03-20 04:25] LABS: Hematocrit 29.5 % (41.0-53.0); Mean Corpuscular Hgb Conc. 33.2 g/dL (32.0-36.0); Mean Corpuscular Volume 93.4 fL (80.0-100.0); Red Blood Cells 3.16 10^6/uL (4.5-5.90); Red Cell Distribution Width 16.8 % (11.8-14.3); White Blood Cell 19.4 10^3/uL (4.4-10.8)
[2022-03-20 04:36] LABS: Basophils % (manual) 0 (0.0-2.0); Blast Cells 0; Eosinophils % (manual) 0 (0-7); Metamyelocytes % 0; Myelocytes % 0; Promyelocytes % 0; Reactive Lymphocytes 0
[2022-03-20 04:41] LABS: Potassium 4.6 mmol/L (3.5-5.1)
[2022-03-20 04:48] LABS: BUN/Creatinine Ratio 23.8; Calcium 8.3 mg/dL (8.5-10.1)
[2022-03-20] MEDS: MIDODRINE HCL 10 MG TAB PO SCH ×3 (05:41→18:22)
[2022-03-20] MEDS: IPRATROPIUM BROM 0.5 MG/2.5ML INH SOL NEB SCH ×4 (05:52→22:09)
[2022-03-20] MEDS: ALBUTEROL SULF 2.5 MG/0.5ML(0.5%) NEB SOLN NEB SCH ×4 (05:52→22:09)
[2022-03-20 06:18] LABS: Band Neutrophils % (manual) 3; Lymphocytes % (manual) 6 (10.0-50.0); Monocytes % (manual) 9 (0-12)
[2022-03-20] MEDS ORDERED: SODIUM CHL 0.9% 1000 ML BAG XX ONE (07:00)
[2022-03-20] MEDS: HEPARIN SODIUM (PORCINE) 5000 UNITS/ML 1ML VIAL SC SCH ×2 (10:00→22:00)
[2022-03-20] MEDS: PANTOPRAZOLE 40 MG/10 ML VIAL INJ IV SCH (10:00)
[2022-03-20] MEDS: LACTULOSE 20Gm/30ML SOLN PO SCH (10:00)
[2022-03-20] MEDS: methylPREDNISolone SOD SUCC 40 MG/ML VL IV SCH ×2 (10:00→22:00)
[2022-03-20] MEDS: METOCLOPRAMIDE HCL 5MG/ml INJ 2ml VIAL IV SCH ×2 (10:00→22:00)
[2022-03-20] MEDS: THIAMINE 100mg/ml INJ (200mg/2ml VIAL) IV SCH (10:00)
[2022-03-20] MEDS: NOREPINEPHRINE 8 MG/250ML KIT 250 ML IV SCH (10:15)
[2022-03-20] MEDS: MEROPENEM 1GM IVPB 100 ML IV SCH (18:19)
[2022-03-20] MEDS ORDERED: EPOETIN ALFA-EPBX 10,000 UNIT/1ML VIAL SC ONE (21:00)
[2022-03-21] VITALS (105 sets, daily range): BP systolic 100–148; BP diastolic 56–86
[2022-03-21] MEDS: PROPOFOL 100 ML IV SCH ×7 (00:15→23:59)
[2022-03-21 03:35] LABS: Hematocrit 31.2 % (41.0-53.0); Hemoglobin 10.1 g/dL (13.5-17.5); Mean Corpuscular Hemoglobin 30.5 pg (28.0-32.0); Mean Corpuscular Hgb Conc. 32.2 g/dL (32.0-36.0); Mean Corpuscular Volume 94.5 fL (80.0-100.0); Red Cell Distribution Width 16.7 % (11.8-14.3); White Blood Cell 25.4 10^3/uL (4.4-10.8)
[2022-03-21 03:37] LABS: Basophils % (manual) 0 (0.0-2.0); Blast Cells 0; Eosinophils % (manual) 0 (0-7); Metamyelocytes % 0; Myelocytes % 0; Promyelocytes % 0; Reactive Lymphocytes 0
[2022-03-21] MEDS: BUMETANIDE INJECTION 25 MG in GIVE UN-DILUTED 0 ML IV SCH (03:39)
[2022-03-21] MEDS: MIDAZOLAM DRIP 50 mg/50mL 50 ML IV SCH ×4 (03:40→22:07)
[2022-03-21] MEDS: fentaNYL Drip 2500mCg/250mlNS 250 ML IV SCH ×2 (03:41→16:47)
[2022-03-21 03:59] LABS: Albumin 3.2 g/dL (3.4-5.0); Calcium 8.3 mg/dL (8.5-10.1); Magnesium 2.7 mg/dL (1.6-2.6)
[2022-03-21 04:02] LABS: BUN/Creatinine Ratio 25.1; Bilirubin, Total 0.6 mg/dL (0.2-1.0); Total Protein 6.7 g/dL (6.4-8.2)
[2022-03-21 04:12] LABS: Potassium 5.7 mmol/L (3.5-5.1)
[2022-03-21 04:37] LABS: Band Neutrophils % (manual) 2; Lymphocytes % (manual) 6 (10.0-50.0); Monocytes % (manual) 6 (0-12)
[2022-03-21] MEDS: MIDODRINE HCL 10 MG TAB PO SCH ×3 (05:28→18:00)
[2022-03-21] MEDS: IPRATROPIUM BROM 0.5 MG/2.5ML INH SOL NEB SCH ×5 (06:16→22:16)
[2022-03-21] MEDS: ALBUTEROL SULF 2.5 MG/0.5ML(0.5%) NEB SOLN NEB SCH ×5 (06:16→22:16)
[2022-03-21] MEDS ORDERED: DEXTROSE (50%) 50ML SYRG IV ONE ×2 (07:30→16:30)
[2022-03-21] MEDS ORDERED: CALCIUM GLUC 1,000mg/50ml-NS 50 ML IV ONE ×2 (07:30→16:30)
[2022-03-21] MEDS ORDERED: InsuLIN REG 1unit/0.01ml Soln (100units/ml) IV ONE ×2 (07:30→16:30)
[2022-03-21] MEDS ORDERED: SODIUM BICARBONATE 8.4 % INJ 50ML VIAL IV ONE ×2 (07:30→16:30)
[2022-03-21] MEDS: THIAMINE 100mg/ml INJ (200mg/2ml VIAL) IV SCH (09:35)
[2022-03-21] MEDS: METOCLOPRAMIDE HCL 5MG/ml INJ 2ml VIAL IV SCH ×2 (09:35→22:05)
[2022-03-21] MEDS: methylPREDNISolone SOD SUCC 40 MG/ML VL IV SCH ×2 (09:35→22:05)
[2022-03-21] MEDS: PANTOPRAZOLE 40 MG/10 ML VIAL INJ IV SCH (09:35)
[2022-03-21] MEDS: HEPARIN SODIUM (PORCINE) 5000 UNITS/ML 1ML VIAL SC SCH ×2 (09:36→22:06)
[2022-03-21] MEDS: LACTULOSE 20Gm/30ML SOLN PO SCH ×2 (09:43→22:05)
[2022-03-21] MEDS: MEROPENEM 1GM IVPB 100 ML IV SCH (18:22)
[2022-03-22] VITALS (99 sets, daily range): BP systolic 79–141; BP diastolic 39–81
[2022-03-22] MEDS: MIDAZOLAM DRIP 50 mg/50mL 50 ML IV SCH ×2 (02:46→23:26)
[2022-03-22] MEDS: PROPOFOL 100 ML IV SCH ×6 (02:46→21:28)
[2022-03-22] MEDS: fentaNYL Drip 2500mCg/250mlNS 250 ML IV SCH ×2 (02:47→14:47)
[2022-03-22 04:36] LABS: Hematocrit 31.3 % (41.0-53.0); Mean Corpuscular Hemoglobin 29.9 pg (28.0-32.0); Mean Corpuscular Hgb Conc. 31.8 g/dL (32.0-36.0); Mean Corpuscular Volume 94.2 fL (80.0-100.0); Red Blood Cells 3.33 10^6/uL (4.5-5.90); Red Cell Distribution Width 16.3 % (11.8-14.3); White Blood Cell 25.1 10^3/uL (4.4-10.8)
[2022-03-22 04:39] LABS: Basophils % (manual) 0 (0.0-2.0); Blast Cells 0; Eosinophils % (manual) 0 (0-7); Metamyelocytes % 0; Myelocytes % 0; Promyelocytes % 0; Reactive Lymphocytes 0
[2022-03-22 04:49] LABS: Albumin 2.9 g/dL (3.4-5.0); BUN/Creatinine Ratio 28.3; Calcium 7.9 mg/dL (8.5-10.1)
[2022-03-22 04:52] LABS: Bilirubin, Total 0.5 mg/dL (0.2-1.0); Total Protein 6.1 g/dL (6.4-8.2)
[2022-03-22 05:05] LABS: Potassium 5.8 mmol/L (3.5-5.1)
[2022-03-22] MEDS: BUMETANIDE INJECTION 25 MG in GIVE UN-DILUTED 0 ML IV SCH (05:45)
[2022-03-22] MEDS: ALBUTEROL SULF 2.5 MG/0.5ML(0.5%) NEB SOLN NEB SCH ×5 (06:02→22:00)
[2022-03-22] MEDS: IPRATROPIUM BROM 0.5 MG/2.5ML INH SOL NEB SCH ×5 (06:02→22:15)
[2022-03-22] MEDS: MIDODRINE HCL 10 MG TAB PO SCH ×3 (06:28→18:00)
[2022-03-22 06:29] LABS: Band Neutrophils % (manual) 1; Lymphocytes % (manual) 4 (10.0-50.0); Monocytes % (manual) 5 (0-12)
[2022-03-22] MEDS ORDERED: ALBUTEROL SULF 2.5 MG/0.5ML(0.5%) NEB SOLN NEB ONE (07:00)
[2022-03-22] MEDS ORDERED: DEXTROSE (50%) 50ML SYRG IV ONE (07:00)
[2022-03-22] MEDS ORDERED: SODIUM BICARBONATE 8.4 % INJ 50ML VIAL IV ONE (07:00)
[2022-03-22] MEDS ORDERED: InsuLIN REG 1unit/0.01ml Soln (100units/ml) IV ONE (07:00)
[2022-03-22] MEDS ORDERED: SODIUM CHL 0.9% 1000 ML BAG XX ONE (07:00)
[2022-03-22] MEDS ORDERED: CALCIUM GLUC 1,000mg/50ml-NS 50 ML IV ONE (07:00)
[2022-03-22] MEDS: PANTOPRAZOLE 40 MG/10 ML VIAL INJ IV SCH (09:38)
[2022-03-22] MEDS: METOCLOPRAMIDE HCL 5MG/ml INJ 2ml VIAL IV SCH ×2 (09:38→21:25)
[2022-03-22] MEDS: THIAMINE 100mg/ml INJ (200mg/2ml VIAL) IV SCH (09:38)
[2022-03-22] MEDS: methylPREDNISolone SOD SUCC 40 MG/ML VL IV SCH ×2 (09:38→21:25)
[2022-03-22] MEDS: LACTULOSE 20Gm/30ML SOLN PO SCH ×2 (09:38→21:24)
[2022-03-22] MEDS: HEPARIN SODIUM (PORCINE) 5000 UNITS/ML 1ML VIAL SC SCH ×2 (09:50→21:27)
[2022-03-22] MEDS: ENSURE CLEAR Mixed Berry 8oz Carton PO SCH ×4 (10:00→21:27)
[2022-03-22] MEDS: NOREPINEPHRINE 8 MG/250ML KIT 250 ML IV SCH ×2 (10:15→15:57)
[2022-03-22] MEDS: MEROPENEM 1GM IVPB 100 ML IV SCH (17:51)
[2022-03-22] MEDS ORDERED: EPOETIN ALFA-EPBX 10,000 UNIT/1ML VIAL SC ONE (21:00)
[2022-03-23] VITALS (97 sets, daily range): BP systolic 97–151; BP diastolic 53–89
[2022-03-23] MEDS: PROPOFOL 100 ML IV SCH ×5 (00:07→21:28)
[2022-03-23] MEDS: BUMETANIDE INJECTION 25 MG in GIVE UN-DILUTED 0 ML IV SCH (01:00)
[2022-03-23] MEDS: fentaNYL Drip 2500mCg/250mlNS 250 ML IV SCH ×2 (02:21→14:15)
[2022-03-23] MEDS: MIDAZOLAM DRIP 50 mg/50mL 50 ML IV SCH ×4 (04:36→21:28)
[2022-03-23 05:45] LABS: BUN/Creatinine Ratio 25.6; Potassium 5.2 mmol/L (3.5-5.1)
[2022-03-23 05:46] LABS: Albumin 3.6 g/dL (3.4-5.0)
[2022-03-23 05:48] LABS: Bilirubin, Total 0.5 mg/dL (0.2-1.0); Total Protein 7.5 g/dL (6.4-8.2)
[2022-03-23] MEDS: ALBUTEROL SULF 2.5 MG/0.5ML(0.5%) NEB SOLN NEB SCH ×6 (06:00→21:56)
[2022-03-23] MEDS: MIDODRINE HCL 10 MG TAB PO SCH ×2 (06:38→13:41)
[2022-03-23] MEDS: ENSURE CLEAR Mixed Berry 8oz Carton PO SCH ×5 (06:38→23:00)
[2022-03-23] MEDS: IPRATROPIUM BROM 0.5 MG/2.5ML INH SOL NEB SCH ×5 (06:49→21:56)
[2022-03-23 07:44] LABS: Hematocrit 32.2 % (41.0-53.0); Mean Corpuscular Hemoglobin 29.8 pg (28.0-32.0); Mean Corpuscular Hgb Conc. 31.2 g/dL (32.0-36.0); Mean Corpuscular Volume 95.6 fL (80.0-100.0); Red Blood Cells 3.37 10^6/uL (4.5-5.90); Red Cell Distribution Width 16.1 % (11.8-14.3); White Blood Cell 28.3 10^3/uL (4.4-10.8)
[2022-03-23 07:50] LABS: Band Neutrophils % (manual) 0; Basophils % (manual) 0 (0.0-2.0); Blast Cells 0; Eosinophils % (manual) 0 (0-7); Myelocytes % 0; Promyelocytes % 0; Reactive Lymphocytes 0
[2022-03-23 09:02] LABS: Lymphocytes % (manual) 6 (10.0-50.0); Metamyelocytes % 2; Monocytes % (manual) 4 (0-12)
[2022-03-23] MEDS: METOCLOPRAMIDE HCL 5MG/ml INJ 2ml VIAL IV SCH ×2 (09:47→22:00)
[2022-03-23] MEDS: THIAMINE 100mg/ml INJ (200mg/2ml VIAL) IV SCH (09:47)
[2022-03-23] MEDS: HEPARIN SODIUM (PORCINE) 5000 UNITS/ML 1ML VIAL SC SCH ×2 (09:47→21:30)
[2022-03-23] MEDS: PANTOPRAZOLE 40 MG/10 ML VIAL INJ IV SCH (09:47)
[2022-03-23] MEDS: LACTULOSE 20Gm/30ML SOLN PO SCH ×2 (09:47→22:00)
[2022-03-23] MEDS: methylPREDNISolone SOD SUCC 40 MG/ML VL IV SCH ×2 (09:48→22:00)
[2022-03-23] MEDS: NOREPINEPHRINE 8 MG/250ML KIT 250 ML IV SCH (10:15)
[2022-03-23] MEDS ORDERED: SODIUM CHL 0.9% 1000 ML BAG XX ONE (19:15)
[2022-03-23] MEDS ORDERED: EPOETIN ALFA-EPBX 10,000 UNIT/1ML VIAL SC ONE (21:00)
[2022-03-24] VITALS (103 sets, daily range): BP systolic 77–141; BP diastolic 40–86
[2022-03-24 04:37] LABS: Hematocrit 29.5 % (41.0-53.0); Hemoglobin 9.6 g/dL (13.5-17.5); Mean Corpuscular Hgb Conc. 32.6 g/dL (32.0-36.0); Mean Corpuscular Volume 95.1 fL (80.0-100.0); White Blood Cell 28.6 10^3/uL (4.4-10.8)
[2022-03-24 04:50] LABS: Basophils % (manual) 0 (0.0-2.0); Blast Cells 0; Metamyelocytes % 0; Promyelocytes % 0; Reactive Lymphocytes 0
[2022-03-24] MEDS: ALBUTEROL SULF 2.5 MG/0.5ML(0.5%) NEB SOLN NEB SCH ×5 (05:51→22:50)
[2022-03-24] MEDS: IPRATROPIUM BROM 0.5 MG/2.5ML INH SOL NEB SCH ×5 (05:51→22:50)
[2022-03-24] MEDS: MIDODRINE HCL 10 MG TAB PO SCH ×3 (06:00→17:38)
[2022-03-24] MEDS: ENSURE CLEAR Mixed Berry 8oz Carton PO SCH ×5 (06:00→22:00)
[2022-03-24] MEDS: PROPOFOL 100 ML IV SCH ×4 (06:16→23:28)
[2022-03-24] MEDS: MIDAZOLAM DRIP 50 mg/50mL 50 ML IV SCH ×4 (06:17→23:39)
[2022-03-24 07:17] LABS: Alanine Aminotransferase 19 U/L (16-61); Albumin 3.1 g/dL (3.4-5.0); Amylase 167 U/L (25-115); Anion Gap 17 (5-15); Aspartate Aminotransferase 23 U/L (15-37); BUN/Creatinine Ratio 22.7; Blood Urea Nitrogen 75 mg/dL (7-18); Calcium 8.3 mg/dL (8.5-10.1); Carbon Dioxide 25 mmol/L (21-32); Chloride 98 mmol/L (98-107); GFR African American 26 mL/min; GFR Non-African American 21 mL/min; Glucose 225 mg/dL (74-106); Potassium 4.5 mmol/L (3.5-5.1); Sodium 140 mmol/L (136-145)
[2022-03-24 07:20] LABS: Alkaline Phosphatase 120 U/L (45-117); Bilirubin, Total 0.5 mg/dL (0.2-1.0); Total Protein 6.5 g/dL (6.4-8.2)
[2022-03-24 08:37] LABS: Lipase 1574 U/L (73-393)
[2022-03-24] MEDS: MEROPENEM 1GM IVPB 100 ML IV SCH ×2 (08:42→17:38)
[2022-03-24] MEDS: BUMETANIDE INJECTION 25 MG in GIVE UN-DILUTED 0 ML IV SCH ×2 (08:43→16:22)
[2022-03-24] MEDS: LACTULOSE 20Gm/30ML SOLN PO SCH ×2 (08:44→22:18)
[2022-03-24] MEDS: METOCLOPRAMIDE HCL 5MG/ml INJ 2ml VIAL IV SCH ×2 (08:44→22:18)
[2022-03-24 09:06] LABS: Band Neutrophils % (manual) 3; Eosinophils % (manual) 1 (0-7); Lymphocytes % (manual) 3 (10.0-50.0); Monocytes % (manual) 5 (0-12); Myelocytes % 1
[2022-03-24] MEDS: PANTOPRAZOLE 40 MG/10 ML VIAL INJ IV SCH (09:36)
[2022-03-24] MEDS: THIAMINE 100mg/ml INJ (200mg/2ml VIAL) IV SCH (09:36)
[2022-03-24] MEDS: HEPARIN SODIUM (PORCINE) 5000 UNITS/ML 1ML VIAL SC SCH ×2 (09:36→22:20)
[2022-03-24] MEDS: methylPREDNISolone SOD SUCC 40 MG/ML VL IV SCH (09:36)
[2022-03-24] MEDS: fentaNYL Drip 2500mCg/250mlNS 250 ML IV SCH (09:37)
[2022-03-24] MEDS: NOREPINEPHRINE 8 MG/250ML KIT 250 ML IV SCH ×2 (11:22→16:55)
[2022-03-25] VITALS (104 sets, daily range): BP systolic 77–142; BP diastolic 23–71
[2022-03-25] MEDS: fentaNYL Drip 2500mCg/250mlNS 250 ML IV SCH ×2 (02:06→13:55)
[2022-03-25] MEDS: ACETAMINOPHEN 325 MG TAB PO PRN (02:29)
[2022-03-25] MEDS: PROPOFOL 100 ML IV SCH ×5 (02:49→16:21)
[2022-03-25 04:01] LABS: Hemoglobin 10.2 g/dL (13.5-17.5)
[2022-03-25 04:03] LABS: Hematocrit 31.3 % (41.0-53.0); Mean Corpuscular Hemoglobin 30.5 pg (28.0-32.0); Mean Corpuscular Hgb Conc. 32.5 g/dL (32.0-36.0); Mean Corpuscular Volume 93.9 fL (80.0-100.0); Red Blood Cells 3.34 10^6/uL (4.5-5.90); Red Cell Distribution Width 15.9 % (11.8-14.3)
[2022-03-25] MEDS: MIDAZOLAM DRIP 50 mg/50mL 50 ML IV SCH ×3 (04:34→14:40)
[2022-03-25 04:44] LABS: White Blood Cell 35.9 10^3/uL (4.4-10.8)
[2022-03-25 04:45] LABS: Basophils % (manual) 0 (0.0-2.0); Blast Cells 0; Metamyelocytes % 0; Myelocytes % 0; Promyelocytes % 0; Reactive Lymphocytes 0
[2022-03-25 04:54] LABS: Albumin 2.8 g/dL (3.4-5.0); BUN/Creatinine Ratio 25.5; Calcium 8.2 mg/dL (8.5-10.1); Potassium 5.1 mmol/L (3.5-5.1)
[2022-03-25 04:57] LABS: Bilirubin, Total 0.6 mg/dL (0.2-1.0); Total Protein 6.4 g/dL (6.4-8.2)
[2022-03-25] MEDS: ENSURE CLEAR Mixed Berry 8oz Carton PO SCH ×4 (05:49→18:00)
[2022-03-25] MEDS: MIDODRINE HCL 10 MG TAB PO SCH ×3 (06:05→18:03)
[2022-03-25] MEDS: IPRATROPIUM BROM 0.5 MG/2.5ML INH SOL NEB SCH ×4 (06:12→18:40)
[2022-03-25] MEDS: ALBUTEROL SULF 2.5 MG/0.5ML(0.5%) NEB SOLN NEB SCH ×4 (06:12→18:40)
[2022-03-25] MEDS: METOCLOPRAMIDE HCL 5MG/ml INJ 2ml VIAL IV SCH ×2 (08:57→21:25)
[2022-03-25] MEDS: PANTOPRAZOLE 40 MG/10 ML VIAL INJ IV SCH (08:58)
[2022-03-25] MEDS: LACTULOSE 20Gm/30ML SOLN PO SCH ×2 (08:58→21:25)
[2022-03-25] MEDS: THIAMINE 100mg/ml INJ (200mg/2ml VIAL) IV SCH (08:58)
[2022-03-25] MEDS: HEPARIN SODIUM (PORCINE) 5000 UNITS/ML 1ML VIAL SC SCH ×2 (09:06→21:26)
[2022-03-25 12:19] LABS: Hematocrit 30.3 % (41.0-53.0); Hemoglobin 9.8 g/dL (13.5-17.5); Mean Corpuscular Hemoglobin 30.4 pg (28.0-32.0); Mean Corpuscular Hgb Conc. 32.3 g/dL (32.0-36.0); Mean Corpuscular Volume 94.1 fL (80.0-100.0); Red Blood Cells 3.22 10^6/uL (4.5-5.90); Red Cell Distribution Width 16.2 % (11.8-14.3)
[2022-03-25 12:23] LABS: White Blood Cell 34.4 10^3/uL (4.4-10.8)
[2022-03-25 12:24] LABS: Basophils % (manual) 0 (0.0-2.0); Blast Cells 0; Metamyelocytes % 0; Myelocytes % 0; Promyelocytes % 0; Reactive Lymphocytes 0
[2022-03-25] MEDS: NOREPINEPHRINE 8 MG/250ML KIT 250 ML IV SCH (13:00)
[2022-03-25 13:01] LABS: Band Neutrophils % (manual) 3; Eosinophils % (manual) 1 (0-7); Lymphocytes % (manual) 4 (10.0-50.0); Monocytes % (manual) 8 (0-12)
[2022-03-25 14:10] LABS: Band Neutrophils % (manual) 2; Eosinophils % (manual) 1 (0-7); Lymphocytes % (manual) 4 (10.0-50.0); Monocytes % (manual) 9 (0-12)
[2022-03-25] MEDS: MEROPENEM 1GM IVPB 100 ML IV SCH (18:02)
[2022-03-26] VITALS (99 sets, daily range): BP systolic 83–136; BP diastolic 29–70
[2022-03-26] MEDS: MIDODRINE HCL 10 MG TAB PO SCH ×3 (06:00→17:53)
[2022-03-26] MEDS: MEROPENEM 1GM IVPB 100 ML IV SCH ×2 (06:00→17:53)
[2022-03-26] MEDS: ALBUTEROL SULF 2.5 MG/0.5ML(0.5%) NEB SOLN NEB SCH ×5 (06:05→22:49)
[2022-03-26] MEDS: IPRATROPIUM BROM 0.5 MG/2.5ML INH SOL NEB SCH ×5 (06:05→22:49)
[2022-03-26] MEDS ORDERED: SODIUM CHL 0.9% 1000 ML BAG XX ONE (07:00)
[2022-03-26 08:46] LABS: Hemoglobin 9.4 g/dL (13.5-17.5); Mean Corpuscular Hemoglobin 29.5 pg (28.0-32.0); Mean Corpuscular Hgb Conc. 31.2 g/dL (32.0-36.0); Mean Corpuscular Volume 94.5 fL (80.0-100.0); Red Blood Cells 3.18 10^6/uL (4.5-5.90); Red Cell Distribution Width 15.8 % (11.8-14.3)
[2022-03-26] MEDS: PANTOPRAZOLE 40 MG/10 ML VIAL INJ IV SCH (08:58)
[2022-03-26] MEDS: LACTULOSE 20Gm/30ML SOLN PO SCH ×2 (08:59→21:14)
[2022-03-26] MEDS: THIAMINE 100mg/ml INJ (200mg/2ml VIAL) IV SCH (08:59)
[2022-03-26] MEDS: METOCLOPRAMIDE HCL 5MG/ml INJ 2ml VIAL IV SCH ×2 (08:59→21:14)
[2022-03-26] MEDS: HEPARIN SODIUM (PORCINE) 5000 UNITS/ML 1ML VIAL SC SCH ×2 (09:05→21:15)
[2022-03-26 09:06] LABS: White Blood Cell 34.7 10^3/uL (4.4-10.8)
[2022-03-26 09:07] LABS: Basophils % (manual) 0 (0.0-2.0); Blast Cells 0; Eosinophils % (manual) 0 (0-7); Metamyelocytes % 0; Myelocytes % 0; Promyelocytes % 0; Reactive Lymphocytes 0
[2022-03-26 09:08] LABS: Calcium 7.3 mg/dL (8.5-10.1)
[2022-03-26] MEDS: BUMETANIDE INJECTION 25 MG in GIVE UN-DILUTED 0 ML IV SCH (09:15)
[2022-03-26] MEDS ORDERED: InsuLIN REG 1unit/0.01ml Soln (100units/ml) IV ONE (10:00)
[2022-03-26] MEDS ORDERED: SODIUM BICARBONATE 8.4% INJ 50ML SYRINGE IV ONE (10:00)
[2022-03-26] MEDS ORDERED: ALBUTEROL SULF 2.5 MG/0.5ML(0.5%) NEB SOLN NEB ONE (10:00)
[2022-03-26] MEDS ORDERED: DEXTROSE (50%) 50ML SYRG IV ONE (10:00)
[2022-03-26 10:12] LABS: Band Neutrophils % (manual) 3; Lymphocytes % (manual) 3 (10.0-50.0); Monocytes % (manual) 12 (0-12)
[2022-03-26] MEDS: SODIUM ZIRCONIUM CYCL 10 GM PAK GT SCH ×2 (11:00→21:14)
[2022-03-26] MEDS: MIDAZOLAM DRIP 50 mg/50mL 50 ML IV SCH ×3 (11:49→18:00)
[2022-03-26] MEDS: ALBUMIN 25% 100 ML IV SCH ×2 (13:46→14:18)
[2022-03-26] MEDS: fentaNYL Drip 2500mCg/250mlNS 250 ML IV SCH (15:52)
[2022-03-26] MEDS: NOREPINEPHRINE 8 MG/250ML KIT 250 ML IV SCH (17:00)
[2022-03-26] MEDS ORDERED: EPOETIN ALFA-EPBX 10,000 UNIT/1ML VIAL SC ONE (21:00)
[2022-03-26] MEDS: PROPOFOL 100 ML IV SCH (21:16)
[2022-03-27] VITALS (26 sets, daily range): BP systolic 98–130; BP diastolic 38–60
[2022-03-27 04:44] LABS: Hematocrit 26.6 % (41.0-53.0); Hemoglobin 8.4 g/dL (13.5-17.5); Mean Corpuscular Hemoglobin 29.8 pg (28.0-32.0); Mean Corpuscular Hgb Conc. 31.4 g/dL (32.0-36.0); Mean Corpuscular Volume 94.9 fL (80.0-100.0); Red Cell Distribution Width 15.8 % (11.8-14.3); White Blood Cell 27.8 10^3/uL (4.4-10.8)
[2022-03-27 04:46] LABS: Basophils % (manual) 0 (0.0-2.0); Blast Cells 0; Eosinophils % (manual) 0 (0-7); Metamyelocytes % 0; Myelocytes % 0; Promyelocytes % 0; Reactive Lymphocytes 0
[2022-03-27 04:50] LABS: BUN/Creatinine Ratio 19.5; Calcium 7.8 mg/dL (8.5-10.1); Potassium 5.5 mmol/L (3.5-5.1)
[2022-03-27] MEDS: SODIUM ZIRCONIUM CYCL 10 GM PAK GT SCH ×2 (05:52→12:57)
[2022-03-27] MEDS: MEROPENEM 1GM IVPB 100 ML IV SCH (05:53)
[2022-03-27] MEDS: MIDODRINE HCL 10 MG TAB PO SCH ×2 (05:53→12:00)
[2022-03-27] MEDS: IPRATROPIUM BROM 0.5 MG/2.5ML INH SOL NEB SCH (07:28)
[2022-03-27] MEDS: ALBUTEROL SULF 2.5 MG/0.5ML(0.5%) NEB SOLN NEB SCH (07:28)
[2022-03-27 07:51] LABS: Band Neutrophils % (manual) 2; Lymphocytes % (manual) 2 (10.0-50.0); Monocytes % (manual) 2 (0-12)
[2022-03-27] MEDS: PROPOFOL 100 ML IV SCH ×2 (09:08)
[2022-03-27] MEDS: MIDAZOLAM DRIP 50 mg/50mL 50 ML IV SCH (09:08)
[2022-03-27] MEDS: PANTOPRAZOLE 40 MG/10 ML VIAL INJ IV SCH (09:11)
[2022-03-27] MEDS: THIAMINE 100mg/ml INJ (200mg/2ml VIAL) IV SCH (09:12)
[2022-03-27] MEDS: METOCLOPRAMIDE HCL 5MG/ml INJ 2ml VIAL IV SCH (09:12)
[2022-03-27] MEDS: HEPARIN SODIUM (PORCINE) 5000 UNITS/ML 1ML VIAL SC SCH (09:13)
[2022-03-27] MEDS: BUMETANIDE INJECTION 25 MG in GIVE UN-DILUTED 0 ML IV SCH (09:15)
[2022-03-27] MEDS: LACTULOSE 20Gm/30ML SOLN PO SCH (10:00)
[2022-03-27] MEDS ORDERED: MORPHINE SULFATE INJ 2 MG/ml SYRG IV PRN (13:00)
[2022-03-27] MEDS ORDERED: LORazepam 2MG/ML-1ML VIAL IV PRN (13:00)
[2022-03-27] MEDS ORDERED: NOREPINEPHRINE 8 MG/250ML KIT 250 ML IV ONE (22:48)
[2022-03-28] MEDS ORDERED: SODIUM CHL 0.9% 1000 ML BAG XX ONE (07:00)
[2022-03-28] MEDS ORDERED: EPOETIN ALFA-EPBX 10,000 UNIT/1ML VIAL SC ONE (21:00)
== END 2022-03-27 17:30 | DRG 870 ==
LOC: ER 09:10 → OVERFLOW 17:38 → EAST 23:55 → ICU WEST 03-05 03:36 → TELE-EAST 03-07 12:00 → DOU IN ICU 03-08 16:10 → ICU WEST 03-11 18:01
PROVIDERS: ADMIT Registered Nurse; ATTEND Internal Medicine Pulmonary Disease
PROC: 06HN33Z Insertion of Infusion Device into Left Femoral Vein, Percutaneous Approach (ICD-10-PCS; 2022-03-08)
PROC: B54CZZA Ultrasonography of Left Lower Extremity Veins, Guidance (ICD-10-PCS; 2022-03-08)
PROC: 5A09357 Assistance with Respiratory Ventilation, Less than 24 Consecutive Hours, Continuous Positive Airway Pressure (ICD-10-PCS; 2022-03-08)
PROC: 5A1D70Z Performance of Urinary Filtration, Intermittent, Less than 6 Hours Per Day (ICD-10-PCS; 2022-03-08)
PROC: 5A09357 Assistance with Respiratory Ventilation, Less than 24 Consecutive Hours, Continuous Positive Airway Pressure (ICD-10-PCS; 2022-03-09)
PROC: 5A1D70Z Performance of Urinary Filtration, Intermittent, Less than 6 Hours Per Day (ICD-10-PCS; 2022-03-09)
PROC: 5A09357 Assistance with Respiratory Ventilation, Less than 24 Consecutive Hours, Continuous Positive Airway Pressure (ICD-10-PCS; 2022-03-10)
PROC: 5A1955Z Respiratory Ventilation, Greater than 96 Consecutive Hours (ICD-10-PCS; principal; 2022-03-11)
PROC: 0BH17EZ Insertion of Endotracheal Airway into Trachea, Via Natural or Artificial Opening (ICD-10-PCS; 2022-03-11)
PROC: 05HD33Z Insertion of Infusion Device into Right Cephalic Vein, Percutaneous Approach (ICD-10-PCS; 2022-03-11)
PROC: B54MZZA Ultrasonography of Right Upper Extremity Veins, Guidance (ICD-10-PCS; 2022-03-11)
PROC: 5A09357 Assistance with Respiratory Ventilation, Less than 24 Consecutive Hours, Continuous Positive Airway Pressure (ICD-10-PCS; 2022-03-11)
PROC: 5A1D70Z Performance of Urinary Filtration, Intermittent, Less than 6 Hours Per Day (ICD-10-PCS; 2022-03-11)
PROC: 5A1D70Z Performance of Urinary Filtration, Intermittent, Less than 6 Hours Per Day (ICD-10-PCS; 2022-03-12)
PROC: 5A1D70Z Performance of Urinary Filtration, Intermittent, Less than 6 Hours Per Day (ICD-10-PCS; 2022-03-13)
PROC: 5A1D70Z Performance of Urinary Filtration, Intermittent, Less than 6 Hours Per Day (ICD-10-PCS; 2022-03-15)
PROC: 5A1D70Z Performance of Urinary Filtration, Intermittent, Less than 6 Hours Per Day (ICD-10-PCS; 2022-03-17)
PROC: 5A1D70Z Performance of Urinary Filtration, Intermittent, Less than 6 Hours Per Day (ICD-10-PCS; 2022-03-18)
PROC: 5A1D70Z Performance of Urinary Filtration, Intermittent, Less than 6 Hours Per Day (ICD-10-PCS; 2022-03-20)
PROC: 5A1D70Z Performance of Urinary Filtration, Intermittent, Less than 6 Hours Per Day (ICD-10-PCS; 2022-03-22)
PROC: 5A1D70Z Performance of Urinary Filtration, Intermittent, Less than 6 Hours Per Day (ICD-10-PCS; 2022-03-23)
PROC: 5A1D70Z Performance of Urinary Filtration, Intermittent, Less than 6 Hours Per Day (ICD-10-PCS; 2022-03-26)
DX: A41.89 Other specified sepsis (principal); R65.21 Severe sepsis with septic shock; G93.41 Metabolic encephalopathy; N17.0 Acute kidney failure with tubular necrosis; J96.01 Acute respiratory failure with hypoxia; J69.0 Pneumonitis due to inhalation of food and vomit; J15.5 Pneumonia due to Escherichia coli; K85.90 Acute pancreatitis without necrosis or infection, unspecified; F10.239 Alcohol dependence with withdrawal, unspecified; J45.901 Unspecified asthma with (acute) exacerbation; Z16.12 Extended spectrum beta lactamase (ESBL) resistance; Z68.44 Body mass index [BMI] 60.0-69.9, adult; A04.72 Enterocolitis due to Clostridium difficile, not specified as recurrent; Z66 Do not resuscitate; Z51.5 Encounter for palliative care; D63.1 Anemia in chronic kidney disease; K70.30 Alcoholic cirrhosis of liver without ascites; E66.01 Morbid (severe) obesity due to excess calories; E87.5 Hyperkalemia; K40.20 Bilateral inguinal hernia, without obstruction or gangrene, not specified as recurrent; I12.9 Hypertensive chronic kidney disease with stage 1 through stage 4 chronic kidney disease, or unspecified chronic kidney disease; F41.9 Anxiety disorder, unspecified; K57.30 Diverticulosis of large intestine without perforation or abscess without bleeding; N18.32 Chronic kidney disease, stage 3b; Q53.20 Undescended testicle, unspecified, bilateral; Z98.84 Bariatric surgery status; Z99.2 Dependence on renal dialysis; Z82.0 Family history of epilepsy and other diseases of the nervous system; Z83.3 Family history of diabetes mellitus; Z86.711 Personal history of pulmonary embolism
CPT/HCPCS: 36415; 36600; 71045; 74018; 74176; 76705; 76775; 80048; 80053; 80061; 80320; 81001; 82140; 82150; 82306; 82570; 82805; 82962; 83036; 83690; 83735; 83970; 84075; 84100; 84132; 84156; 84300; 84443; 84450; 84460; 84484; 85007; 85025; 85027; 85610; 85730; 86803; 87040; 87070; 87077; 87081; 87186; 87205; 87340; 87426; 90935; 93005; 94002; 94003; 94640; 94660; 96365; 96367; 96372; 96375; C9113; G0378; J0696; J1642; J1815; J2185; J2250; J2405; J2704; J3490; P9047